=== PATIENT | female | born 1970 | race Caucasian/White ===

== ENCOUNTER 2018-04-14 11:11 | Day surgery (SDC) | payer BC, SELFPAY ==
[2018-04-14] VITALS (7 sets, daily range): BP systolic 127–150; BP diastolic 78–88; PULSE 109–112; RESP 14–98; TEMP 36.1–36.9; O2SAT 96–98
[2018-04-14] MEDS: Lactated Ringers 1,000 ML 80 ML IV (11:57)
--- NOTE | 2018-04-14 13:12 | W.PM.DSUDISC ---
Discharge Plan Disposition Patient Disposition: HOME Condition: Good Discharge Details Reason For Visit: Rupture of left thumb extensor tendon Attending Provider: Anshu Millard Primary Care Provider: Ravindra Morrison Home Meds and New Rx's Prescriptions: Continue omeprazole 40 MG capsule,delayed release(DR/EC) 40 mg PO DAILY Qty: 90 RF: 3 trazodone 50 MG tablet 50 mg PO HS Qty: 90 RF: 3 bupropion HCl 100 mg tablet 100 mg PO BID Qty: 180 RF: 3 diphenhydramine HCl [Benadryl] 25 MG capsule 1 - 2 cap PO Q3H PRN RF: 0 acetaminophen [Acetaminophen Extra Strength] 500 MG tablet 500 mg PO Q6H PRN PRNQty: 100 RF: 0 Discharge Instructions Additional Instructions: Activity: You will need to keep the hand elevated at all times. You may wear the sling for comfort. You may use your other fingers as tolerated. Dressings/Splint: Your splint/cast will stay on until your follow-up appointment. You should keep it clean and dry. Do NOT get wet. Medications: - You may take Acetaminophen for baseline pain control. - Ibuprofen may be helpful but you may need to avoid given your history of reflux - Hydrocodone for breakthrough pain. Follow-up: 7-10 days Equipment/Supplies: Cast Remove Dressings/Wound Care:: Do Not Remove Shower/Bathe:: Cover Diet:: As Tolerated Discharge Orders Discharge Orders: Discharge Order (Routine); Ordered 04/14/18 Ordered By: Anshu Millard DS: Diagnosis Discharge Diagnosis (1) Rupture of extensor tendon of left hand: Status: Acute
[2018-04-14] MEDS: CLINDAMYCIN 600 MG/50 ML BAG 100 MG IVPB (13:27)
[2018-04-14] MEDS: Bupivacaine 0.25% Pres-Free 30 ML VIAL (14:21)
[2018-04-14] MEDS: Bupivacaine LIPOSOME/PF 133 MG/10 ML VIAL IJ (14:31)
[2018-04-14] MEDS: HYDROcodone 5/Acetaminophen 325 TAB PO (15:40)
--- NOTE | 2018-04-16 14:07 | ROE_ITS ---
DATE OF SURGERY: April 14, 2018 PREOPERATIVE DIAGNOSIS: Rupture of left thumb extensor tendon. POSTOPERATIVE DIAGNOSIS: Same. SURGERY: Direct repair of EIP tendon previously used in an EIP to EPL transfer. SURGEON: Anshu Millard M.D. [employer]: Juliana Morel PA-C ANESTHESIA: General. FINDINGS: The extensor indicis proprius tendon had ruptured proximal to its Pulvertaft weave within the distal stump of the EPL tendon. The stump was able to be identified and a direct repair was perf ormed although the tendon quality was poor. The tendon was moved into a purely subcutaneous location outside of any retinaculum which could be providing a source of irritation. ESTIMATED BLOOD LOSS: 10 cc COMPLICATIONS: None. DISPOSITION: The patient was awakened from anesthesia and taken to the PACU in a stable condition. INDICATION FOR PROCEDURE: Huong is a 47-year-old who suffered an attritional rupture of her EPL tend on of the left hand. An EIP to EPL transfer was performed. She did well in recovery. She did kiya nue to use it more than I would have liked but without significant issue. She started having some pa in and then eventually presented with a complete rupture of the repair with a flexed thumb, unable to palmar abduct nor extend the thumb tip. Therefore, I recommended a revision extensor tendon repair. I was pessimistic about the hopes of a robust repair. I reviewed the risks of the procedure to inc lude bleeding, infection, pain, stiffness, re-rerupture, continued weakness, stiffness, and damage to nerves and vessels. Despite these risks, she elected to proceed. PROCEDURE DESCRIPTION: Huong was greeted in the preoperative holding area. Her identity was confirm ed and the correct side was identified and marked. The consent was reviewed with the patient and sig oneal. The History and Physical was updated. She was taken back to the Operating Room and placed in a supine position. A nonsterile tourniquet was placed high up on her left arm. Prophylactic antibiot ics in the form of cefazolin were given. A time-out was performed for safe surgery. The left thumb was prepped with ChloraPrep and draped in a standard fashion. The limb was exsanguina cheri and the tourniquet was inflated where it stayed for 40 minutes. The previous incision was made overlying the thumb and the forearm. Both were extended slightly. Th e skin was incised only. Deep dissection was used with tenotomy scissors protecting any branches of the superficial radial nerve. The distal stump of the EPL tendon was identified. The Pulvertaft wea ve was noted to be intact as noted by the sutures. The EIP tendon was noted to be torn at the level of the extensor retinaculum of the wrist. At the previously done EIP to EPL transfer I only incised the retinaculum to avoid any tight areas but did not completely release the EIP tendon from the fourt h extensor compartment. The fourth extensor compartment was fully incised. The EIP tendon was found deep proximally within the forearm. This was then mobilized and dissected free of any adhesions. The Keven's tubercle was debrided down while we were here. The fourth compartment was then closed. The distal stump of the EIP tendon was really quite synovitic and did not appear particularly health y. However, I was able to move this tendon which would move the whole thumb and demonstrated an inta ct tendon complex. Therefore, I performed a direct repair with some overlapping of the tendon compon ents. The edges were freshened up but I did not want to shorten the tendon too much as it was alread y a challenging repair. Using a #2-0 FiberWire I performed a cruciate type stitch, pulling the two tendon edges together. Th is was repeated twice for a four-core repair. I then used a #5-0 nylon to help smooth down the rough ened edges of the tendon, overlapping each tendon some with these extra components. The tendon was f ree completely. It was under no stress from the overlying skin or any surrounding retinacular tissue . It did take a direct route over the radial styloid. It held the thumb in a significant amount of extension. I was able to passively bring the thumb to a neutral position but did not bring it any fu rther due to risk of re-rupture. The wound was then thoroughly irrigated. The tourniquet was deflat ed. There was no significant bleeding. The deep tissues were closed with a #3-0 Vicryl. The skin w as closed with a #4-0 nylon. She was placed into a thumb spica cast after dressing the wound with Xe roform, 4x4s, and Webril. At the end of the case all counts were correct.
== END 2018-04-14 23:59 | disposition home or self-care (01) ==
PROVIDERS: PCP Emergency Medicine; Visit Provider Student in an Organized Health Care Education/Training Program
PROC: (CPT 26418; principal; 2018-04-14 11:45)
DX: S66.212A Strain of extensor muscle, fascia and tendon of left thumb at wrist and hand level, initial encounter (principal); X50.9XXA Other and unspecified overexertion or strenuous movements or postures, initial encounter
CPT/HCPCS: 26418; J0131; J1100; J1885; J2250; J2405; J3010; L3650

== ENCOUNTER 2020-05-21 09:52 | Outpatient (REF) | payer OTHER, SELFPAY ==
[2020-05-21 22:25] LABS: COVID-19 RT-PCR UVMMC Result Negative (Negative)
== END 2020-05-21 10:12 ==
LOC: LBO 09:52
PROVIDERS: PCP Emergency Medicine; Visit Provider Nurse Practitioner Family
DX: Z11.59 Encounter for screening for other viral diseases (principal)
CPT/HCPCS: U0003

== ENCOUNTER 2020-05-23 13:15 | Outpatient (CLI) | payer OTHER, SELFPAY ==
[2020-05-24 02:13] LABS: COVID-19 RT-PCR UVMMC Result Negative (Negative)
== END 2020-05-23 13:35 ==
PROVIDERS: PCP Emergency Medicine; Visit Provider Emergency Medicine
DX: Z20.828 Contact with and (suspected) exposure to other viral communicable diseases (principal)
CPT/HCPCS: U0003

== ENCOUNTER 2022-07-31 13:52 | Emergency (ER) | payer BC, SELFPAY ==
[2022-07-31 13:56] VITALS: BP 158/97; PULSE 110; RESP 18; TEMP 36.2; O2SAT 97
--- NOTE | 2022-07-31 14:07 | ED.GENADUL_ITS ---
Discharge Plan Disposition Patient Disposition: Home Discharge Details Clinical Impression: Pain, dental Primary Care Provider: Ubaldo Amador ED Provider: Karen Cabello Home Meds and New Rx's Prescriptions: New amoxicillin-pot clavulanate 875-125 mg tablet 1 tab PO BID 7 Days Qty: 14 0RF Continued omeprazole 40 mg capsule,delayed release(DR/EC) 40 mg PO DAILY Qty: 90 3RF amlodipine 5 mg tablet 5 mg PO DAILY Qty: 90 3RF diphenhydramine HCl [Benadryl] 25 MG capsule 1 - 2 cap PO Q3H PRN Discharge Instructions Instructions: Toothache (ED) Additional Instructions: Rinse mouth out after eating or drinking anything. Apply the topical numbing medicine as directed up to 3 times daily. Take the antibiotic as directed. Please follow-up with a dentist as soon as possible. Please take Tylenol or Ibuprofen with food every 4-6 hours as needed for pain and swelling. Return to the ER for any worsening swelling, fever, chills, problems opening your mouth, problems swallowing, drainage or any concerns. Practice good oral hygiene. Follow up with primary care provider in 3-5 days. Return to ED sooner if any worsening or concerns. Increase oral fluids. Referrals: Ubaldo Amador, [facility] [Primary Care Provider] - 2 weeks Discharge Data Discharge Date/Time-TO BE ENTERED AT DEPARTURE: 07/31/22 14:25 Medical Decision Making 52-year-old female presents to the ER with a chief complaint of right lower molar pain for too long. She does have a history of a missing filling to that tooth. The tooth is broken which appears chronic no surrounding swelling to the gumline no fluctuance no drainage noted. She does have small amount of swelling to the submandibular area of her jaw. She is speaking in full sentences no trismus. She does report some radiation of pain into her ear. She has been taking Tylenol ibuprofen and Aleve with little to no relief. She is a daily smoker. She does not have a dentist. Topical benzocaine gel supplied to patient instructed on use, Augmentin given here to to go. Dental resources given to the patient. Discussed red flags and strict return instructions. Discussed oral care and home care. This text was generated using [employer] system, please disregard any oddities of phrase or misspellings. HPI General Mode of arrival: ambulatory . Date/Time Provider Initiated Documentation: 07/31/22 13:59 . Limitations to Documentation: no limitations . Information obtained by: patient, RN notes reviewed and old records reviewed . HPI Narrative: 52-year-old female presents to the ER with a chief complaint of right lower molar pain for too long. She does have a history of a missing filling to that tooth. The tooth is broken which appears chronic no surrounding swelling to the gumline no fluctuance no drainage noted. She does have small amount of swelling to the submandibular area of her jaw. She is speaking in full sentences no trismus. She does report some radiation of pain into her ear. She has been taking Tylenol ibuprofen and Aleve with little to no relief. She is a daily smoker. She does not have a dentist. She does have a past medical history of hypertension, GERD. Related Data Home Medications Medication Instructions Recorded Confirmed diphenhydramine HCl 25 mg capsule 1 - 2 cap PO Q3H PRN 08/15/12 07/31/22 (Benadryl) omeprazole 40 mg capsule,delayed 40 mg PO DAILY #90 tab-caps 07/09/20 07/31/22 release amlodipine 5 mg tablet 5 mg PO DAILY #90 tabs 04/01/22 07/31/22 amoxicillin 875 mg-potassium 1 tab PO BID 7 days #14 tabs 07/31/22 clavulanate 125 mg tablet Previous Rx's Medication Instructions Recorded omeprazole 40 mg capsule,delayed 40 mg PO DAILY #90 tab-caps 07/09/20 release amlodipine 5 mg tablet 5 mg PO DAILY #90 tabs 04/01/22 amoxicillin 875 mg-potassium 1 tab PO BID 7 days #14 tabs 07/31/22 clavulanate 125 mg tablet Allergies Allergy/AdvReac Type Severity Reaction Status Date / Time ANIMAL DANDER Allergy Intermediate SNEEZE; Uncoded 07/31/22 13:58 STUFFY NOSE General Stated Complaint: DentalOral ALISON: 4 Review of Systems All systems reviewed & are unremarkable except as noted in HPI and below Constitutional Constitutional: Denies body ache(s), Denies chills and Denies fever(s) ENT Ears, Nose, Mouth, and Throat: Reports as per HPI, Denies halitosis, Denies change in voice, Reports dental pain, Denies dysphagia, Reports otalgia, Reports facial pain, Denies hoarseness, Denies neck mass and Denies neck pain Cardiovascular Cardiovascular: Denies chest pain and Denies dyspnea Respiratory Respiratory: Denies dyspnea Gastrointestinal Gastrointestinal: Denies dysphagia Musculoskeletal Musculoskeletal: Denies neck pain PFSH All Active Problems (Updated 07/31/22 @ 14:15 by Karen Cabello NP) Pain, dental (Acute) Viral illness (Acute) Encounter for screening for other viral diseases (Acute) Allergic rhinitis (Acute) Family hx-breast malignancy (Chronic) 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) Repair left EPL on 01/03/2018 Repeat repair left EPL on 04/14/2018 Migraine (Chronic) Heavy alcohol use (Chronic 07/13/17) quit History of tobacco use (Chronic) Gastroesophageal reflux disease (Chronic) Essential hypertension (Chronic 09/03/13) Medical History (Updated 07/31/22 @ 14:15 by Karen Cabello NP) GERD (gastroesophageal reflux disease) Heavy alcohol use HTN (hypertension) Migraine Smoker Surgical History BUNIONECTOMY RIGHT Ligation of fallopian tube Social History Smoking/Tobacco Use Status: Current every day Tobacco Type: cigarettes Smoking risk assessment performed?: Yes Alcohol Intake: current Alcohol Intake frequency: holidays/special occasions only Drug use: Never Substance use type: does not use Do you feel safe at home: Yes Do you feel safe in your relationship?: Yes Exam HENMT Face and sinus: no fluctuance and tenderness on the right submandibular Face images: 1. Small amount of submandibular swelling and tenderness with palpation. Nonfluctuant Teeth image: 1. Broken tooth, down through Dentin, no surrounding swelling no drainage no area of fluctuance no sign of abscess. Resp Effort & Inspection: normal respiratory effort and able to speak in complete sentences Auscultation: clear to auscultation bilaterally Cardio Rate: regular rate Rhythm: regular rhythm Heart Sounds: S1 normal and S2 normal Course Vital Signs Vital signs: Vital Signs Temperature 36.2 C L 07/31/22 13:56 Pulse 110 H 07/31/22 13:56 Respiratory Rate 18 07/31/22 13:56 Blood Pressure 158/97 H 07/31/22 13:56 Pulse Oximetry 97 07/31/22 13:56 Temperature 36.2 C L 07/31/22 13:56 Temperature Source Temporal Artery Scan 07/31/22 13:56 Pulse 110 H 07/31/22 13:56 Respiratory Rate 18 07/31/22 13:56 Respiratory Effort Normal, Non-Labored 07/31/22 13:58 Blood Pressure 158/97 H 07/31/22 13:56 Pulse Oximetry 97 07/31/22 13:56 Oxygen Delivery Method Room Air 07/31/22 13:56 Oxygen Flow Rate 0 07/31/22 13:56 PAWSS Have you Been Recently Intoxicated or Drunk Within the Last 30 days?: No Have you Ever Experienced Previous Episodes of Alcohol Withdrawal?: No Have you ever Experienced Withdrawal Seizures?: No Have you ever Experienced Delirium Tremens(DT)s?: No Have you ever undergone Alcohol Rehabilitation Treatment (i.e, inpt ot outpatient treatment programs)?: No Have you ever Experienced Blackouts?: No Have you ever Combined Alcohol with other Downers within the last 90 days?: No Have you ever Combined Alcohol with any other Substance of Abuse during the last 90 days?: No Positive Blood Alcohol level on Presentation? [PCS.BAL]: No Evidence of Increased Autonomic Activity (i.e. HR>120, tremor, sweating, agitation, nausea)?: No Result: 0
[2022-07-31] MEDS: Amox. 875/Clav. 125, 2 TABS/BTL 1 TAB PO (14:15)
[2022-07-31] MEDS: Benzocaine 20% Gel 30 GM JAR MM (14:15)
[2022-07-31] MEDS: Amoxicillin 875/Clav. 125 TAB PO (14:15)
== END 2022-07-31 14:25 | disposition home or self-care (01) ==
PROVIDERS: Emergency Provider Registered Nurse Emergency; PCP Nurse Practitioner Family
DX: K08.89 Other specified disorders of teeth and supporting structures (principal); K03.81 Cracked tooth; I10 Essential (primary) hypertension
CPT/HCPCS: 99283; 99284

== ENCOUNTER 2022-10-13 23:23 | Outpatient (REF) | payer BC, MEDICAID, SELFPAY | END 2022-10-13 23:24 | disposition home or self-care (01) | LOC: LBN 23:23 | PROVIDERS: PCP Nurse Practitioner Family; Visit Provider Nurse Practitioner Family | DX: R30.0 Dysuria (principal) | CPT/HCPCS: 87086 ==

== ENCOUNTER 2022-11-30 03:21 | Outpatient (CLI) | payer MEDICAID, SELFPAY ==
[2022-11-30 12:33] LABS: Calculated LDL 282 mg/dL (<100); Cholesterol 389 mg/dL (<200); HDL Cholesterol 73 mg/dL (40-60); Triglyceride 173 mg/dL (<150)
[2022-11-30 12:35] LABS: Hemoglobin A1C 5.4 % (<5.7)
== END 2022-11-30 03:22 | disposition home or self-care (01) ==
LOC: LOS 03:21
PROVIDERS: PCP Nurse Practitioner Family; Visit Provider Nurse Practitioner Family
DX: Z13.1 Encounter for screening for diabetes mellitus (principal); Z13.220 Encounter for screening for lipoid disorders
CPT/HCPCS: 36415; 80061; 83036

== ENCOUNTER 2023-02-07 12:30 | Outpatient (REF) | payer MEDICAID, SELFPAY ==
--- NOTE | 2023-02-07 11:50 | PAPFT_PTH ---
PATIENT: Huong Arango LOC: [facility] U#:[id number] AGE/SX: 52/F ROOM: RE02/07/[address]: Lisa Cunha MD : [id number] BED: DIS: 02/07/2023 SPEC #: [id number] RECD: 02/07/23 12:56 STATUS: DOT REAlexandra #: [id number] YARED: 02/07/23 11:[address]: Lisa Cunha DEPT: [facility] Cytology RECD BY: Nancy Estrella ENTERED: 02/07/23 12:56 SP TYPE: PAPFT BHAVANA DR: Ubaldo Amador, ELTON Tissues: 1 - CX/ENDOCX FOR PAP SMEARS Procedures: PAP THIN PREP/UVM Screening HPV DNA PROBE Comments: [id number]
== END 2023-02-07 12:31 | disposition home or self-care (01) ==
LOC: LBN 12:30
PROVIDERS: PCP Nurse Practitioner Family; Visit Provider Obstetrics & Gynecology
DX: Z12.4 Encounter for screening for malignant neoplasm of cervix (principal); Z11.51 Encounter for screening for human papillomavirus (HPV)
CPT/HCPCS: 88142; 87624